=== PATIENT | female | born 1945 | race Caucasian/White ===

== ENCOUNTER 2019-09-03 13:19 | Inpatient (IN) | payer MEDICARE, OTHER ==
[~2019-09-03] VITALS: Ht 170.2 cm; Wt 55.3 kg
--- NOTE | 2019-09-03 13:31 | NUR ---
PATIENT JANET, FROM [facility], SENT BY PMD FOR PSYCH EVAL DUE TO AGGRESSIVE TO SELF AND STAFF. PATIENT A/O X 1. NO ACUTE DISTRESS. WITH DISORGANIZED THOUGHT PROCESS, UNABLE TO FOLLOW INSTRUCTIONS. SITTER AT BEDSIDE. WILL CONTINUE TO MONITOR ACCORDINGLY.
[2019-09-03] MEDS ORDERED: ATOR10TA PO (13:38)
[2019-09-03] MEDS ORDERED: AMLO10TA4 PO (13:38)
[2019-09-03] MEDS ORDERED: QUET50TA PO (13:38)
[2019-09-03] MEDS ORDERED: LORA-259 PO (13:38)
[2019-09-03] MEDS ORDERED: MAG355OR18 PO (13:38)
[2019-09-03] MEDS ORDERED: ACET-73 PO (13:38)
[2019-09-03] MEDS ORDERED: FOLI1TAB16 PO (13:38)
[2019-09-03] MEDS ORDERED: CEPH-570 PO (13:38)
[2019-09-03] MEDS ORDERED: DIVA500T2 PO (13:38)
[2019-09-03 13:41] LABS: BASOPHILS % (AUTO) 0.4 % (0.0-2.0); EOSINOPHILS % (AUTO) 0.5 % (0.0-6.0); HEMATOCRIT 36 % (33-45); HEMOGLOBIN 11.7 g/dL (11.5-14.8); LYMPHOCYTES # (AUTO) 1.6 /CMM (0.8-4.8); LYMPHOCYTES % (AUTO) 31.5 % (20.0-44.0); MEAN CORPUSCULAR HGB CONC 33 g/dl (31.0-36.0); MEAN CORPUSCULAR VOLUME 96 fL (82-100); MONOCYTES # (AUTO) 0.4 /CMM (0.1-1.30); MONOCYTES % (AUTO) 7.6 % (2.0-12.0); PLATELET COUNT (AUTO) 185 /CMM (150-450); RED BLOOD CELL COUNT(AUTO) 3.72 MIL/uL (4.0-5.2); WHITE BLOOD COUNT (AUTO) 5.1 K/uL (4.3-11.0)
[2019-09-03 13:48] LABS: CALCIUM, SERUM 8.7 mg/dL (8.5-10.1); CARBON DIOXIDE 30 mmol/L (21-32); CHLORIDE 107 mmol/L (98-107); CREATININE 0.8 mg/dL (0.6-1.3); GLUCOSE 150 mg/dL (74-106); POTASSIUM 3.5 mmol/L (3.5-5.1); SODIUM SERUM 143 mmol/L (136-145); UREA NITROGEN, BLOOD 16 mg/dL (7-18)
--- NOTE | 2019-09-03 13:54 | NUR ---
PATIENT UNABLE TO PROVIDE URINE SPECIMEN. DR MONTEJO MADE AWARE, NO ORDERS GIVEN AT THIS TIME. WILL CONTINUE TO MONITOR
[2019-09-03 13:59] LABS: BILIRUBIN,TOTAL 0.3 mg/dL (0.2-1.0)
[2019-09-03 14:00] LABS: ALANINE AMINOTRANSFERASE 25 U/L (12-78); ALBUMIN 3.3 g/dL (3.4-5.0); ALCOHOL, BLOOD < 3 mg/dL (0-0); ALKALINE PHOSPHATASE 46 U/L (46-116); ASPARTATE AMINOTRANSFERASE 16 U/L (15-37); BILIRUBIN,DIRECT 0.1 mg/dL (0.0-0.2); SALICYLATE < 2.8 mg/dL (2.8-20.0); TOTAL PROTEIN, SERUM 6.7 g/dL (6.4-8.2)
[2019-09-03 14:03] LABS: ACETAMINOPHEN 0 ug/ml (10-30)
--- NOTE | 2019-09-03 14:27 | NUR ---
CALLED AIRPLANE FIRST OFFICER PHOTOGRAPHIC AIDE. ETA 60 MIN
--- NOTE | 2019-09-03 14:50 | NUR ---
ART PURCHASER AT BEDSIDE
[2019-09-03 15:00] LABS: APPEARANCE,URINE Clear (CLEAR); BILIRUBIN,URINE Negative (NEGATIVE); BLOOD, URINE Negative Ery/uL (NEGATIVE); COLOR,URINE Yellow (YELLOW); KETONES,URINE Negative (NEGATIVE); LEUKOCYTE ESTERASE ,URINE Negative (NEGATIVE); NITRITE, URINE Negative (NEGATIVE); PH,URINE 6.5 (5.0-8.0); PROTEIN,URINE Trace mg/dl (NEGATIVE); UGLUCOSE Negative (NEGATIVE); UROBILINOGEN,URINE 0.2 EU/dL (0.2)
--- NOTE | 2019-09-03 16:25 | NUR ---
PLACED CALL TO GPS AND GAVE REPORT TO ELIAS ERICKSON
--- NOTE | 2019-09-03 17:08 | NUR ---
PATIENT TRANSFERRED TO GPS VIA WHEELCHAIR. TRANSFERRED IN STABLE CONDITION. NO ACUTE DISTRESS. DENIES ANY PAIN OR DISCOMFORT. BELONGINGS WITH PATIENT.
--- NOTE | 2019-09-03 17:15 | NUR ---
MAINTENANCE FITTER NOTE: PT IS A 74 Y/O FEMALE ADMITTED ON 5150 GD FROM [facility]. PER 5150 HOLD "PATIENT KNOWS HER NAME BUT ORIENTED TO DATE, PLACE AND WHY SHE IS HERE. PATIENT THINKS SHE IS HERE BECAUSE SHE IS VISITING HER GRANDMOTHER, PATIENT IS PARANOID THINKS PEOPLE ARE FOLLOWING HER. PATIENT IS CONFUSED AND DISORGANIZED. JUDGMENT IS IMPAIRED AND HAS POOR INSIGHT AND IMPULSE CONTROL. PATIENT IS UNABLE TO PROVIDE FOR HER FOOD, CLOTHING, AND ASSISTED DUE TO HER MENTAL STATE. [facility] IS ALSO UNABLE TO PROVIDE THE SAME DUE TO THE SAME." UPON FACE TO FACE ASSESSMENT, PATIENT IS ALERT X1, CONFUSED, UNKEMPT APPEARANCE, CLEAR SPEECH, DENIES SI/HI AT THIS TIME. GUARDED, PASSIVE, SUSPICIOUS, ANXIOUS, FAIR IMPULSE CONTROL. ANXIOUS, LABILE MOOD. FLAT, BLUNTED AFFECT. DISORGANIZE, DISORIENTED. PARANOID IDEATION. VSS, NO ACUTE DISTRESS NOTED, ALLERGIES DOCUMENTED, CODE STATUS ORDERED PER YUE. MRSA SWAB DONE, SKIN ASSESSMENT WITH PICTURES ADDED TO CHART. WOUND CONSULT ORDERED. BELONGINGS LIST COMPLETE. PT'S RIGHTS HANDBOOK GIVEN ALONG WITH GUIDE TO PRESCRIPTIONS. YUE AND DR. POWERS CONTACTED REGARDING ADMISSION TO REVIEW MED RECON AND OBTAINED ADMITTING ORDERS FROM PSYCHIATRIST. WILL CONT TO MONITOR PT. Q 15 MIN FOR SAFETY AND BEHAVIOR PER GPS PROTOCOL.
[2019-09-03 17:43] VITALS: BP 141/73
[2019-09-03] MEDS ORDERED: MAG HYDROX/AL HYDROX/SIMETH 30 ML UDC PO PRN ×2 (18:00→18:30)
[2019-09-03] MEDS ORDERED: ACETAMINOPHEN 325 MG TABLET PO PRN (18:00)
[2019-09-03] MEDS ORDERED: BLOOD SUGAR DIAGNOSTIC 1 EACH STRIP IN ONE (18:00)
[2019-09-03] MEDS ORDERED: MAGNESIUM HYDROXIDE 30 ML UDC PO PRN (18:00)
--- NOTE | 2019-09-03 19:16 | NUR ---
GPS/RN NOTE: PATIENT AMBULATING AROUND, CONFUSED, SMILE ON HER FACE. NO APPARENT DISTRESS NOTED.
[2019-09-03 19:52] VITALS: BP 124/75
[2019-09-03] MEDS: CEPHALEXIN MONOHYDRATE 500 MG CAPSULE PO SCH (20:11)
[2019-09-03] MEDS: ZOLPIDEM TARTRATE 5 MG TABLET PO PRN (20:11)
--- NOTE | 2019-09-03 20:11 | NUR ---
GPS/RN NOTE: PATIENT PACING AROUND THE UNIT, BACK AND FORTH IN HER ROOM. NO APPARENT DISTRESS NOTED.
[2019-09-03] MEDS: ATORVASTATIN 10 MG TABLET PO SCH (21:29)
[2019-09-03] MEDS: LORAZEPAM 0.5 MG TABLET PO PRN (21:29)
--- NOTE | 2019-09-03 21:33 | NUR ---
GPS/RN NOTE: PATIENT NOT SLEEPING, ATIVAN 1 MG PO GIVEN.
[2019-09-04 07:49] LABS: ALBUMIN 3.2 g/dL (3.4-5.0); BILIRUBIN,TOTAL 0.3 mg/dL (0.2-1.0); CREATININE 0.8 mg/dL (0.6-1.3); POTASSIUM 3.2 mmol/L (3.5-5.1); TOTAL PROTEIN, SERUM 6.7 g/dL (6.4-8.2)
[2019-09-04 08:00] VITALS: BP 136/77
--- NOTE | 2019-09-04 08:30 | NUR ---
PSYCHOSOCIAL NOTE: Elayne, Gisell Weaver REDUCTION FURNACE OPERATOR HELPER, attest to the patients previous psychosocial information dated 08/16/19 Update On Events leading to Admission and Discharge Plan: Pt has returned to the hospital within 8 days of her previous discharge date of 08/27/19. The current plan is to increase and stabilize the patient on her medications. SW is exploring SNF placement as pt came from [facility] Address: [address] [place] [address] and may not be accepted back due to her aggressive behavior and non-compliance with care and medications. The pt appeared to be in a euthymic mood with congruent affect. Pt is confused, disoriented, and disorganized. Pt is ambulatory, well-groomed and appropriately dressed, pleasant and easily engaged. Pt is currently denying any suicidal or homicidal ideation as well as any visual or auditory hallucinations. ELLE will work with the pt and the MD regarding appropriate discharge planning. SW will form a safe and proper discharge.
[2019-09-04] MEDS: CEPHALEXIN MONOHYDRATE 500 MG CAPSULE PO SCH ×2 (08:35→20:22)
[2019-09-04] MEDS: AMLODIPINE BESYLATE 10 MG TABLET PO SCH (08:35)
[2019-09-04] MEDS: FOLIC ACID 1 MG TABLET PO SCH (08:35)
--- NOTE | 2019-09-04 09:00 | NUR ---
FACILITY CONTACT: ELLE contacted Pollo, product safety administrator at [facility] Address: [address] [place] [address] and left a voicemail for callback.
--- NOTE | 2019-09-04 09:01 | NUR ---
FAMILY CONTACT: ELLE contacted pts sister in law Arlyn [phone] to discuss pts current psych hospitalization, treatment, and discharge plan. ELLE informed her that pt was readmitted within 8 days of her last discharge and was admitted due to aggressive behavior and non-compliance with care. SW discussed possible short-term SNF placement for continued stabilization before pt returns to her assisted living. Arlyn stated that it may be a good discharge plans but wants to ensure that pt does not lose her room at [facility] if pt does go to a SNF short term. ELLE stated that she would discuss this with Pollo, client service administrator at [facility] and will contact her next week to continue discussing a safe and proper discharge plan.
--- NOTE | 2019-09-04 09:29 | NUR ---
FACILITY CONTACT: ELLE contacted Pasha, network security administrator at [facility] Address: [address] [place] [address] who stated facility is willing to take pt back as long as her medications are stabilized. Pasha informed ELLE that on the second day after discharge from the hospital pt became unmanageable and became aggressive with other residents and staff. ELLE informed Pasha that pt was stabilized and did not have any behaviors issues while in the psych unit and suggested that perhaps pts medications were not given to her routinely as they were given to her while she was hospitalized. Pasha mentioned that perhaps that is what caused pt to become unmanageable as her medications were not being given to her routinely at the same exact time they were being given to her at [facility]. Pasha also stated that if pt is discharged to a SNF short term she will not lose her room and suggested that might be a good discharge plan for pt.
[2019-09-04 09:35] LABS: CHOLESTEROL 178 mg/dL (<200); HDL CHOLESTEROL 74 mg/dL (40-60); LDL 78 mg/dL (0-99); TRIGLYCERIDES 59 mg/dL (30-150)
[2019-09-04] MEDS ORDERED: POTASSIUM CHLORIDE 20 MEQ TAB.PRT.SR PO ONE (10:30)
--- NOTE | 2019-09-04 11:08 | NUR ---
WOUND CARE CONSULT: PT PRESENTS AMBULATORY AND CONTINENT WITH DRY SCRATCHES AND DISCOLORATIONS TO ARMS, PRESENT ON ADMISSION. CURRENT UDAY SCORE IS 20. WILL SEE PRN.
[2019-09-04 16:00] VITALS: BP 136/93
[2019-09-04] MEDS: DIVALPROEX SODIUM 250 MG TABLET.DR PO SCH ×2 (16:26→17:00)
[2019-09-04] MEDS ORDERED: DIVALPROEX SODIUM 500 MG TABLET.DR PO SCH (17:00)
[2019-09-04] MEDS: QUETIAPINE FUMARATE 25 MG TABLET PO SCH (17:32)
[2019-09-04 20:09] VITALS: BP 103/67
[2019-09-04] MEDS: ZOLPIDEM TARTRATE 5 MG TABLET PO PRN (20:23)
--- NOTE | 2019-09-04 20:23 | NUR ---
GPS/RN NOTE: AMBIEN 5 MG TAB PO GIVEN FOR SLEEP, LOOKS TIRED AND SLEEPY AT THIS TIME.
[2019-09-04] MEDS: ATORVASTATIN 10 MG TABLET PO SCH (21:33)
[2019-09-04] MEDS: LORAZEPAM 0.5 MG TABLET PO PRN (22:09)
--- NOTE | 2019-09-04 22:09 | NUR ---
GPS/RN NOTE: STILL AWAKE, ATIVAN 1 MG TAB PO GIVEN FOR SLEEP.
[2019-09-05] MEDS: DIVALPROEX SODIUM 250 MG TABLET.DR PO SCH ×2 (08:28→16:43)
[2019-09-05] MEDS: CEPHALEXIN MONOHYDRATE 500 MG CAPSULE PO SCH ×2 (08:28→21:20)
[2019-09-05] MEDS: FOLIC ACID 1 MG TABLET PO SCH (08:28)
[2019-09-05] MEDS: QUETIAPINE FUMARATE 25 MG TABLET PO SCH ×2 (08:28→16:43)
[2019-09-05] MEDS: AMLODIPINE BESYLATE 10 MG TABLET PO SCH (08:28)
[2019-09-05 08:34] VITALS: BP 136/74
--- NOTE | 2019-09-05 14:07 | NUR ---
Group Activity 09/05/19 Goal: Patient will attend group held today from 1:00pm-3:00pm in the activities room and participate and/or actively listen to peers and be respectful. Intervention: SW facilitated group session with patients regarding sensory activity for the holidays. SW explored what tastes, smells, sounds, and sights come to mind when thinking about the holiday season and one thing they are grateful for. SW validated the pt.'s sadness around not being able to spend the holidays with all of your loved ones and acknowledged her for staying positive. Response: Patient was agreeable to participating in group session. Patient was alert and remained calm and cooperative throughout session. The patient was respectful towards her peers when they shared. Pt. expressed she is grateful for her ability to ambulate and grateful to be discharging in the near future. Pt. expressed the sight of her loved ones comes to mind during the holiday season as she cannot be with all of them but has fond memories of them. Plan: Patient will be invited to attend next geriatric social worker group session held.
[2019-09-05 16:00] VITALS: BP 107/68
[2019-09-05 21:07] VITALS: BP 147/67
[2019-09-05] MEDS: ATORVASTATIN 10 MG TABLET PO SCH (21:20)
[2019-09-05] MEDS: ZOLPIDEM TARTRATE 5 MG TABLET PO PRN (21:20)
--- NOTE | 2019-09-05 21:21 | NUR ---
GPS RN NOTES: PT UNABLE TO GO TO SLEEP. OFFERED AMBIEN PO PRN. PT TOLERATED WELL CONT TO MONITOR.
[2019-09-06] MEDS: LORAZEPAM 0.5 MG TABLET PO PRN (00:31)
--- NOTE | 2019-09-06 00:34 | NUR ---
GPS RN NOTES: PATIENT IS ANXIOUS. OFFERED ATIVAN 1MG PO PRN. PT AGREED. ADMINISTERED ATIVAN 1MG PO PRN. PT TOLERATED MEDICATION WELL. CONT TO MONITOR.
[2019-09-06 08:00] VITALS: BP 118/65
[2019-09-06] MEDS: CEPHALEXIN MONOHYDRATE 500 MG CAPSULE PO SCH ×2 (08:28→21:24)
[2019-09-06] MEDS: DIVALPROEX SODIUM 250 MG TABLET.DR PO SCH ×2 (08:28→16:17)
[2019-09-06] MEDS: AMLODIPINE BESYLATE 10 MG TABLET PO SCH (08:28)
[2019-09-06] MEDS: QUETIAPINE FUMARATE 25 MG TABLET PO SCH ×2 (08:28→16:17)
[2019-09-06] MEDS: FOLIC ACID 1 MG TABLET PO SCH (08:28)
--- NOTE | 2019-09-06 14:41 | NUR ---
Group Note09/06/19: Goal: Patient will attend group held today at 1:00 PM in the activities room and participate and/or actively listen to peers and be respectful. Intervention: SW facilitated Mindful Breathing exercise with residents. SW educated the pt. on mindfulness purpose and benefits. Response: Patient was agreeable to participating in group session. The patient remained calm and cooperative throughout session. The pt. stated that she enjoyed engaging in the mindful breathing exercise. Pt. expressed gratitude for todays group. Plan: Patient will be invited to attend next secondary social studies teacher group session held.
[2019-09-06 16:01] VITALS: BP 120/68
[2019-09-06 20:01] VITALS: BP 101/56
[2019-09-06] MEDS: ATORVASTATIN 10 MG TABLET PO SCH (21:24)
[2019-09-06] MEDS: ZOLPIDEM TARTRATE 5 MG TABLET PO PRN (21:25)
--- NOTE | 2019-09-06 21:38 | NUR ---
GPS RN NOTES: PT UNABLE TO GO TO SLEEP. OFFERED AMBIEN PO PRN. PT TOLERATED WELL CONT TO MONITOR.
[2019-09-07 08:00] VITALS: BP 120/79
[2019-09-07] MEDS: CEPHALEXIN MONOHYDRATE 500 MG CAPSULE PO SCH ×2 (08:11→21:02)
[2019-09-07] MEDS: AMLODIPINE BESYLATE 10 MG TABLET PO SCH (08:12)
[2019-09-07] MEDS: QUETIAPINE FUMARATE 25 MG TABLET PO SCH ×2 (08:12→17:46)
[2019-09-07] MEDS: FOLIC ACID 1 MG TABLET PO SCH (08:12)
[2019-09-07] MEDS: DIVALPROEX SODIUM 250 MG TABLET.DR PO SCH ×2 (08:12→17:46)
[2019-09-07 16:00] VITALS: BP 130/85
[2019-09-07 20:00] VITALS: BP 108/66
[2019-09-07] MEDS: ZOLPIDEM TARTRATE 5 MG TABLET PO PRN (21:02)
[2019-09-07] MEDS: ATORVASTATIN 10 MG TABLET PO SCH (21:02)
[2019-09-07] MEDS: LORAZEPAM 0.5 MG TABLET PO PRN (22:55)
[2019-09-08 08:00] VITALS: BP 125/58
[2019-09-08] MEDS: DIVALPROEX SODIUM 250 MG TABLET.DR PO SCH ×2 (08:18→16:19)
[2019-09-08] MEDS: CEPHALEXIN MONOHYDRATE 500 MG CAPSULE PO SCH ×2 (08:18→21:34)
[2019-09-08] MEDS: FOLIC ACID 1 MG TABLET PO SCH (08:18)
[2019-09-08] MEDS: QUETIAPINE FUMARATE 25 MG TABLET PO SCH ×2 (08:18→16:19)
[2019-09-08] MEDS: AMLODIPINE BESYLATE 10 MG TABLET PO SCH (08:19)
[2019-09-08] MEDS: LORAZEPAM 0.5 MG TABLET PO PRN ×2 (14:46→23:52)
--- NOTE | 2019-09-08 14:51 | NUR ---
PT IS PACING HALLWAYS AND NOTICEABLY AGITATED. WHEN ASKED IF SHE WAS OKAY AND HOW SHE WAS FEELING SHE USED CURSE WORDS AND DISPLAYED BEING UPSET. ATIVAN PRN WAS ADMINISTERED.
[2019-09-08 16:00] VITALS: BP 118/63
[2019-09-08 19:41] VITALS: BP 112/77
[2019-09-08] MEDS: ZOLPIDEM TARTRATE 5 MG TABLET PO PRN (21:33)
[2019-09-08] MEDS: ATORVASTATIN 10 MG TABLET PO SCH (21:34)
[2019-09-09 08:00] VITALS: BP 108/52
[2019-09-09] MEDS: FOLIC ACID 1 MG TABLET PO SCH (08:20)
[2019-09-09] MEDS: DIVALPROEX SODIUM 250 MG TABLET.DR PO SCH ×2 (08:20→16:55)
[2019-09-09] MEDS: AMLODIPINE BESYLATE 10 MG TABLET PO SCH (08:20)
[2019-09-09] MEDS: CEPHALEXIN MONOHYDRATE 500 MG CAPSULE PO SCH ×2 (08:20→21:00)
[2019-09-09] MEDS: QUETIAPINE FUMARATE 25 MG TABLET PO SCH ×3 (08:20→21:01)
--- NOTE | 2019-09-09 11:44 | NUR ---
FACILITY CONTACT: ELLE contacted Pollo, windows administrator at [facility] Address: [address] [place] [address] to inform him pt has a discharge date for 09/12/19. Pollo stated that he will be sending Pasha to come assess pt to determine if she will be able to return to the facility due to her aggressive behavior at the facility. ELLE informed him that currently pt has not displayed any behavior issues and is very cooperative, refractable, and complaint. ELLE also suggested that perhaps pts medications are not administered at the same times they are being given to her while hospitalized and suggested the facility follow the same regimen. Pollo stated that he will have Pasha come assess pt before discharge to discuss treatment and medication regimen with nursing staff.
[2019-09-09 16:00] VITALS: BP 129/81
[2019-09-09 20:44] VITALS: BP 127/79
[2019-09-09] MEDS: ATORVASTATIN 10 MG TABLET PO SCH (21:00)
[2019-09-09] MEDS: ZOLPIDEM TARTRATE 5 MG TABLET PO PRN (21:01)
--- NOTE | 2019-09-09 21:19 | NUR ---
GPS RN NOTES: PT UNABLE TO GO TO SLEEP. ADMINISTER AMBIEN 5 MH 1 TAB PER ORDER. EDUCATED PT. PT TOLERATED WELL. CONTINUE TO MONITOR.
[2019-09-10 08:00] VITALS: BP 121/72
[2019-09-10] MEDS: FOLIC ACID 1 MG TABLET PO SCH (08:09)
[2019-09-10] MEDS: DIVALPROEX SODIUM 250 MG TABLET.DR PO SCH ×2 (08:09→16:36)
[2019-09-10] MEDS: QUETIAPINE FUMARATE 25 MG TABLET PO SCH ×3 (08:09→21:23)
[2019-09-10] MEDS: AMLODIPINE BESYLATE 10 MG TABLET PO SCH (08:12)
--- NOTE | 2019-09-10 14:27 | NUR ---
FACILITY CONTACT: ELLE contacted Pasha, clinical research administrator at [facility] Address: [address] [place] [address] who stated he will be coming tomorrow 09/11/19 to assess pt.
--- NOTE | 2019-09-10 14:29 | NUR ---
GROUP NOTE: ELLE assessed pts ability to participate in group therapy discussing "discharge planning." Pt is unable to participate due to having Dementia and not being able to engage in a coherent conversation. Addendum: 09/10/19 at 1437 by [place] ALMEIDA group was held on Monday09/09/19.
--- NOTE | 2019-09-10 15:05 | NUR ---
Group Note: SW encouraged the pt to attend group therapy on 09/10/19 at 2pm on the topic of discharge planning. SW assessed pts ability to participate in group therapy. Pt is unable to participate due to having Dementia and not being able to engage in a coherent conversation.
[2019-09-10 16:00] VITALS: BP 127/72
[2019-09-10 20:13] VITALS: BP 118/61
[2019-09-10] MEDS: ZOLPIDEM TARTRATE 5 MG TABLET PO PRN (21:24)
[2019-09-10] MEDS: ATORVASTATIN 10 MG TABLET PO SCH (21:24)
--- NOTE | 2019-09-10 21:26 | NUR ---
GPS RN NOTES: PT UNABLE TO GO TO SLEEP. ADMINISTER AMBIEN 5 MH 1 TAB PER ORDER. EDUCATED PT. PT TOLERATED WELL. CONTINUE TO MONITOR.
[2019-09-11 08:00] VITALS: BP 113/66
[2019-09-11] MEDS: AMLODIPINE BESYLATE 10 MG TABLET PO SCH (08:10)
[2019-09-11] MEDS: FOLIC ACID 1 MG TABLET PO SCH (08:11)
[2019-09-11] MEDS: QUETIAPINE FUMARATE 25 MG TABLET PO SCH ×3 (08:11→20:57)
[2019-09-11] MEDS: DIVALPROEX SODIUM 250 MG TABLET.DR PO SCH ×2 (08:11→16:54)
--- NOTE | 2019-09-11 10:50 | NUR ---
FACILITY CONTACT: ELLE contacted Pasha, clinic administrator at [facility] Address: [address] [place] [phone] who stated he will be coming on this present day to assess pt between 12:00pm-1:00pm.
[2019-09-11 16:00] VITALS: BP 116/73
[2019-09-11 20:08] VITALS: BP 137/67
--- NOTE | 2019-09-11 20:30 | NUR ---
joint machine operator notes pt started walking and going to each patient room even you re-directed where is her room and noticed unstable to walked at this time. They put her in karmen chair for now for pt safety and will continue closely monitoring.
[2019-09-11] MEDS: ATORVASTATIN 10 MG TABLET PO SCH (20:57)
[2019-09-11] MEDS: ZOLPIDEM TARTRATE 5 MG TABLET PO PRN (20:57)
--- NOTE | 2019-09-11 21:46 | NUR ---
full stack developer notes Pt still in karmen chair and routine meds given as well as her sleep medication and pt tolerated well. snacks also served. will continue monitoring.
[2019-09-11] MEDS: LORAZEPAM 0.5 MG TABLET PO PRN (21:56)
--- NOTE | 2019-09-11 21:58 | NUR ---
dumpman notes pt still awake and anxious sitting in the karmen chair, even sleep medication given, administered Ativan po as ordered . will continue closely monitoring.
--- NOTE | 2019-09-12 05:54 | NUR ---
author notes pt remain sleeping comfortably in bed without any distress noted.
--- NOTE | 2019-09-12 06:54 | NUR ---
fertilizer loader closing notes pt remains sleeping comfortably in bed without any distress noted. confusion still noted when she's awake, frequent re-orientation needed. but compliance on her medication .stable sydnie the night except the confusion. all due meds given and all needs met. kept her warm and comfortable at all times. bed alarm set for pt safety. will endorse to am nurse for continuity of care.
[2019-09-12 08:00] VITALS: BP 143/70
[2019-09-12 08:15] VITALS: BP 143/70
[2019-09-12] MEDS: FOLIC ACID 1 MG TABLET PO SCH (08:15)
[2019-09-12] MEDS: DIVALPROEX SODIUM 250 MG TABLET.DR PO SCH (08:15)
[2019-09-12] MEDS: AMLODIPINE BESYLATE 10 MG TABLET PO SCH (08:15)
[2019-09-12] MEDS: QUETIAPINE FUMARATE 25 MG TABLET PO SCH (08:15)
--- NOTE | 2019-09-12 09:18 | NUR ---
DISCHARGE NOTE: Pt will be discharged via facility vehicle between 1:00pm- 3:00pm to [facility] Address: [address] [place] [address] . Pts sister in law Arlyn [phone] has been notified and agrees with discharge plan. Pts mood is euthymic with congruent affect. Pt denied visual/auditory hallucinations and denied suicidal/homicidal ideation. Pt will follow up with Psychiatrist: Dr. Jose Gibson Address: [place] [address] and Director Food Safety: Dr. Dav Ramos [address] [facility] [address] [place] [address] . The multidisciplinary exit care form was done, printed, signed, and given to the patient.
--- NOTE | 2019-09-12 16:04 | NUR ---
GRAILS WEB APPLICATION DEVELOPER NOTE: PATIENT IS A 74 YEAR OLD FEMALE DISCHARGED TO. PATIENT IS IN STABLE CONDITION. VSS. NO ACUTE DISTRESS NOTED. NO COMPLAINTS. COMPLIANT WITH MEDICATION MANAGEMENT. COOPERATIVE WITH PLAN OF CARE. PSYCHIATRIC TREATMENT PLANS MET. MEDICAL TREATMENT PLANS DEFERRED FOR CONTINUAL MONITORING. DENIES SI/HI VAH AT THE TIME OF DISCHARGE. SKIN CHECK DONE WITH WOUND PICTURES IN CHART. EDUCATED PATIENT ABOUT AFTERCARE WITH COPY PROVIDED. RETURNED PERSONAL BELONGINGS TO PATIENT. MEDICATIONS RECONCILED WITH DR MARI AND DR FIGUEROA ALONG WITH PSYCHIATRIC DISCHARGE ORDERS. DISCHARGE PAPERWORK SIGNED. FOR FOLLOW UP WITH PSYCHIATRIST DR JUJU GONSALES [id number] [facility] [id number] DONNELL PONCE [address] [facility] [address] [facility] [address] WITHIN 1 WEEK. PATIENT LEFT [facility] VIA PRIVATE CAR AT 1415.
== END 2019-09-12 14:15 | DRG 885 ==
LOC: ER 13:30 → GPS 16:55
PROVIDERS: ADMIT Psychiatry & Neurology Psychiatry; ATTEND Registered Nurse
DX: F25.9 Schizoaffective disorder, unspecified (principal); F23 Brief psychotic disorder; N39.0 Urinary tract infection, site not specified; R45.1 Restlessness and agitation; I10 Essential (primary) hypertension; E78.5 Hyperlipidemia, unspecified; B96.89 Other specified bacterial agents as the cause of diseases classified elsewhere; F41.9 Anxiety disorder, unspecified; F32.9 Major depressive disorder, single episode, unspecified; F03.90 Unspecified dementia, unspecified severity, without behavioral disturbance, psychotic disturbance, mood disturbance, and anxiety
CPT/HCPCS: 36415; 80048-TC; 80053-TC; 80061-TC; 80076-TC; 80305; 81000-TC; 82962-TC; 85025-TC; 87081-TC; 87086-TC; 87186-TC; G0480

== ENCOUNTER 2019-09-26 15:49 | Inpatient (IN) | payer MEDICARE, OTHER ==
[~2019-09-26] VITALS: Ht 167.6 cm; Wt 65.3 kg
[~2019-09-26 15:49] MED LIST: ACET-73 PO; AMLO10TA4 PO; ATOR10TA PO; CEPH-570 PO; DIVA500T2 PO; FOLI1TAB16 PO; LORA-259 PO; MAG355OR18 PO; QUET50TA PO
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
[2019-09-26 16:45] LABS: BASOPHILS % (AUTO) 0.5 % (0.0-2.0); EOSINOPHILS % (AUTO) 1.2 % (0.0-6.0); HEMATOCRIT 35 % (33-45); HEMOGLOBIN 11.5 g/dL (11.5-14.8); LYMPHOCYTES # (AUTO) 1.7 /CMM (0.8-4.8); LYMPHOCYTES % (AUTO) 39.1 % (20.0-44.0); MEAN CORPUSCULAR HGB CONC 33 g/dl (31.0-36.0); MEAN CORPUSCULAR VOLUME 95 fL (82-100); MONOCYTES # (AUTO) 0.4 /CMM (0.1-1.30); MONOCYTES % (AUTO) 8.7 % (2.0-12.0); NEUTROPHILS # (AUTO) 2.2 /CMM (1.8-8.9); NEUTROPHILS % (AUTO) 50.5 % (43.0-81.0); PLATELET COUNT (AUTO) 153 /CMM (150-450); RED BLOOD CELL COUNT(AUTO) 3.62 MIL/uL (4.0-5.2); WHITE BLOOD COUNT (AUTO) 4.4 K/uL (4.3-11.0)
--- NOTE | 2019-09-26 16:52 | NUR ---
place a call to [facility] to verify home medications, spoke to nursing media supervisor. medications verified and documented.
[2019-09-26 17:14] LABS: CALCIUM, SERUM 8.9 mg/dL (8.5-10.1); CARBON DIOXIDE 27 mmol/L (21-32); CHLORIDE 104 mmol/L (98-107); CREATININE 0.8 mg/dL (0.6-1.3); GLUCOSE 100 mg/dL (74-106); SODIUM SERUM 140 mmol/L (136-145); UREA NITROGEN, BLOOD 14 mg/dL (7-18)
[2019-09-26 17:20] LABS: ALANINE AMINOTRANSFERASE 19 U/L (12-78); ALBUMIN 3.4 g/dL (3.4-5.0); ALCOHOL, BLOOD < 3 mg/dL (0-0); ALKALINE PHOSPHATASE 46 U/L (46-116); ASPARTATE AMINOTRANSFERASE 12 U/L (15-37); BILIRUBIN,DIRECT 0.1 mg/dL (0.0-0.2); BILIRUBIN,TOTAL 0.2 mg/dL (0.2-1.0); TOTAL PROTEIN, SERUM 6.7 g/dL (6.4-8.2)
[2019-09-26 17:21] LABS: ACETAMINOPHEN < 2 ug/ml (10-30); SALICYLATE 0.4 mg/dL (2.8-20.0)
--- NOTE | 2019-09-26 17:26 | NUR ---
URINE COLLECTED AND SENT TO LAB
[2019-09-26 17:34] LABS: APPEARANCE,URINE Clear (CLEAR); BILIRUBIN,URINE Negative (NEGATIVE); BLOOD, URINE Negative Ery/uL (NEGATIVE); COLOR,URINE Yellow (YELLOW); KETONES,URINE Negative (NEGATIVE); LEUKOCYTE ESTERASE ,URINE Negative (NEGATIVE); NITRITE, URINE Negative (NEGATIVE); PH,URINE 8.5 (5.0-8.0); PROTEIN,URINE Negative (NEGATIVE); UGLUCOSE Negative (NEGATIVE); UROBILINOGEN,URINE 0.2 EU/dL (0.2)
--- NOTE | 2019-09-26 18:43 | NUR ---
Patient is resting comfortably in bed with eyes closed. Easily aroused. VSS
--- NOTE | 2019-09-26 19:42 | NUR ---
REPORT GIVEN TO DRE YEPEZ
--- NOTE | 2019-09-26 19:57 | NUR ---
Patient is resting comfortably in bed with eyes closed. Easily aroused. VSS
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
--- NOTE | 2019-09-26 20:26 | NUR ---
pt taken to 220 in stable condition
--- NOTE | 2019-09-26 20:46 | NUR ---
GPS/RN NOTE: VITALS ON ADMISSION: 161/90, 76, 98.0, 20, 100% SAT. ON ROOM AIR. PATIENT ASYMPTOMATIC, DENIES CHEST PAIN, NO APPARENT DISTRESS NOTED. WILL RECHECK BP IN AN HOUR.
[2019-09-26 20:48] VITALS: BP 161/90
[2019-09-26] MEDS ORDERED: BLOOD SUGAR DIAGNOSTIC 1 EACH STRIP IN ONE (21:00)
[2019-09-26] MEDS ORDERED: MAG HYDROX/AL HYDROX/SIMETH 30 ML UDC PO PRN (21:00)
[2019-09-26] MEDS ORDERED: ACETAMINOPHEN 325 MG TABLET PO PRN (21:00)
[2019-09-26] MEDS ORDERED: MAGNESIUM HYDROXIDE 30 ML UDC PO PRN (21:00)
--- NOTE | 2019-09-26 21:37 | NUR ---
GPS/RN NOTE: CALLED PATIENT'S BROTHER, GERMAINE HIRSCH, [phone], LEFT A MESSAGE ABOUT HER SISTER ADMITTED TO [facility]. -
--- NOTE | 2019-09-26 21:43 | NUR ---
GPS RN NOTE PATIENT'S BS LEVEL IS 81 MG/DL. ASYMPTOMATIC. ORANGE JUICE PO GIVEN. WILL CONTINUE TO MONITOR CLOSELY FOR ANY CHANGES.
--- NOTE | 2019-09-26 22:42 | NUR ---
GPS/RN NOTE: DR. Bebeto TURNER CAME AND ORDERED CODE STATUS, DNR. MEDS RECONCILED.
[2019-09-26] MEDS: TEMAZEPAM 7.5 MG CAPSULE PO PRN (22:55)
--- NOTE | 2019-09-26 22:55 | NUR ---
PRN RESTORIL GIVEN PATIENT NOTED TO BE UNABLE TO SLEEP, PACING THE HALLWAY & VERBALIZED THAT SHE CAN NOT GO TO SLEEP. PRN RESTORIL 7.5 MG PO GIVEN ORDERED BY MD. WILL REASSESS FOR EFFECTIVENESS.
--- NOTE | 2019-09-27 06:51 | NUR ---
GPS RN CLOSING NOTE PATIENT SLEPT 5 HOURS, NO ACUTE DISTRESS NOTED. ANXIOUS, RESTLESS & UNABLE TO SLEEP AT NIGHT, RESTORIL GIVEN PRN ORDERED & WAS EFFECTIVE. SAFETY MEASURES IN PLACE. WILL ENDORSE TO AM RN TO CONTINUE TO MONITOR FOR SAFETY & BEHAVIOR.
[2019-09-27 08:00] VITALS: BP 136/73
[2019-09-27 08:05] LABS: CHOLESTEROL 188 mg/dL (<200); HDL CHOLESTEROL 88 mg/dL (40-60); LDL 84 mg/dL (0-99); TRIGLYCERIDES 67 mg/dL (30-150)
[2019-09-27 08:06] LABS: ALBUMIN 3.6 g/dL (3.4-5.0); BILIRUBIN,TOTAL 0.6 mg/dL (0.2-1.0); CALCIUM, SERUM 9.1 mg/dL (8.5-10.1); CREATININE 0.8 mg/dL (0.6-1.3); POTASSIUM 3.7 mmol/L (3.5-5.1); TOTAL PROTEIN, SERUM 7.3 g/dL (6.4-8.2)
[2019-09-27] MEDS ORDERED: DIVALPROEX SODIUM 500 MG TABLET.DR PO SCH (09:00)
--- NOTE | 2019-09-27 09:23 | NUR ---
WOUND CARE CONSULT: PT PRESENTS WITH INTACT SKIN AND IS AMBULATORY AND CONTINENT. PT STATES HAS BIRTHMARK ON HER BACK (DISCOLORATION PRESENT ON ADMISSION). WILL SEE PRN. CURRENT UDAY SCORE IS 21.
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
--- NOTE | 2019-09-27 10:34 | NUR ---
FAMILY CONTACT: ELLE contacted pts sister in law Arlyn [phone] to discuss pts current psych hospitalization, treatment, and discharge plan. ELLE informed her that [facility] Address: [address] [place] [address] is not taking pt back due to her aggressive behavior towards self, other residents, and staff. ELLE informed Arlyn that pt will be referred to a SNF and Arlyn agreed.
--- NOTE | 2019-09-27 11:16 | NUR ---
INITIAL DISCHARGE PLAN: Pt will need SNF placement. ELLE contacted Pasha, distribution center administrator at [facility] Address: [address] [place] [phone] who stated that the facility is unable to accommodate pts needs due to her aggressive behavior and are unable to accept pt back. Pt will need SNF placement. ELLE contacted pts sister in law Arlyn [phone] to inform and agreed with SNF placement. ELLE will help form a safe and proper discharge in collaboration with .
[2019-09-27 16:00] VITALS: BP 129/70
[2019-09-27] MEDS ORDERED: DIVALPROEX SODIUM 250 MG TABLET.DR PO SCH (17:00)
[2019-09-27] MEDS: DIVALPROEX SODIUM 250 MG TABLET.DR PO SCH (18:10)
[2019-09-27] MEDS: QUETIAPINE FUMARATE 25 MG TABLET PO SCH ×2 (18:10→21:32)
--- NOTE | 2019-09-27 19:12 | NUR ---
GPS RN NOTES RECEIVED PT IN BED AWAKE, NO S/S OR COMPLAINTS OF PAIN AT THIS TIME. RESPIRATIONS EVEN AND UNLABORED WITH NO S/S OF ACUTE DISTRESS OR SOB NOTED. PT A/O X1. PT DENIES SI/HI AT THIS TIME. SAFETY MEASURES IN PLACE WITH BED IN LOWEST LOCKED POSITION WITH SIDE RAILS UP X2. CALL HALL WITHIN REACH. WILL CONTINUE TO MONITOR.
[2019-09-27 20:45] VITALS: BP 125/83
[2019-09-27] MEDS: ATORVASTATIN 10 MG TABLET PO SCH (21:31)
[2019-09-27] MEDS: TEMAZEPAM 7.5 MG CAPSULE PO PRN (22:03)
[2019-09-27 22:54] VITALS: BP 125/83
[2019-09-28] MEDS: LORAZEPAM 0.5 MG TABLET PO PRN ×3 (01:18→14:38)
--- NOTE | 2019-09-28 07:06 | NUR ---
GPS RN NOTES PT IN BED AWAKE, NO S/S OR COMPLAINTS OF PAIN AT THIS TIME. RESPIRATIONS EVEN AND UNLABORED WITH NO S/S OF ACUTE DISTRESS OR SOB NOTED. PT A/O X1. PT DENIES SI/HI AT THIS TIME. SAFETY MEASURES IN PLACE WITH BED IN LOWEST LOCKED POSITION WITH SIDE RAILS UP X2. CALL HALL WITHIN REACH. WILL ENDORSE TO ONCOMING NURSE FOR LUCILLE.
[2019-09-28 08:00] VITALS: BP 115/55
[2019-09-28] MEDS: DIVALPROEX SODIUM 250 MG TABLET.DR PO SCH ×2 (08:27→17:26)
[2019-09-28] MEDS: QUETIAPINE FUMARATE 25 MG TABLET PO SCH ×3 (08:28→21:05)
--- NOTE | 2019-09-28 09:25 | NUR ---
WANDERS IN TO OTHER PT. RM.TOUCHING PT.
--- NOTE | 2019-09-28 09:30 | NUR ---
MEDICATED WITH MAALOX FOR STOMACH ACHE AND ATIVAN FOR AGITATION.
--- NOTE | 2019-09-28 13:03 | NUR ---
WALKING IN STOUT THEN SUDDENLY AGITATED,ENCOURAGED TO BE IN DINING RM.WITH SUPERVISION.
--- NOTE | 2019-09-28 14:38 | NUR ---
WANDERING IN TO OTHER PT. ROOMS-OTHER PT'S YELLING.MEDICATED WITH ATIVAN PO AND WALKED TO DINING RM.
[2019-09-28 16:00] VITALS: BP 111/74
[2019-09-28 20:17] VITALS: BP 120/78
[2019-09-28] MEDS: ATORVASTATIN 10 MG TABLET PO SCH (21:05)
[2019-09-28] MEDS: TEMAZEPAM 7.5 MG CAPSULE PO PRN (22:00)
--- NOTE | 2019-09-28 22:33 | NUR ---
PT UNABLE TO GO TO SLEEP OFFERED RESTORIL 7.5 MG PO PRN ORDERED. PT AGREED. ADMINISTERED MEDICATION. PT TOLERATED WELL CONTINUE TO MONITOR.
[2019-09-29 08:00] VITALS: BP 130/68
[2019-09-29] MEDS: QUETIAPINE FUMARATE 25 MG TABLET PO SCH ×3 (08:35→21:15)
[2019-09-29] MEDS: DIVALPROEX SODIUM 250 MG TABLET.DR PO SCH ×2 (08:36→17:08)
[2019-09-29 16:00] VITALS: BP 118/70
[2019-09-29 20:40] VITALS: BP 129/82
[2019-09-29] MEDS: ATORVASTATIN 10 MG TABLET PO SCH (21:15)
[2019-09-30 08:00] VITALS: BP 123/83
[2019-09-30] MEDS: DIVALPROEX SODIUM 250 MG TABLET.DR PO SCH ×2 (08:57→16:19)
[2019-09-30] MEDS: QUETIAPINE FUMARATE 25 MG TABLET PO SCH ×2 (08:58→16:19)
--- NOTE | 2019-09-30 14:24 | NUR ---
SNF REFERRAL: ELLE faxed SNF referral to Malu learning center coordinator at [facility] Address: [address] [facility], [place] [address] for review.
[2019-09-30 16:03] VITALS: BP 127/73
--- NOTE | 2019-09-30 16:05 | NUR ---
GROUP NOTE: SW encouraged pt to attend group on this present day discussing "discharge planning." Pt unable to attend group due to Dementia and cognitive impairment. Pt is confused and disorganized with confabulated thought process.
--- NOTE | 2019-09-30 16:07 | NUR ---
SNF: SW received a call from Malu, hospital admissions clerk at [facility] Address: [address] [facility], [place] [address] stating pt has been admitted to the facility.
--- NOTE | 2019-09-30 19:57 | NUR ---
PT WAS RECEIVED FR THE MORNING SHIFT LYING IN THE BED, AWAKE AND QUIET, NO S/S AND C/O PAIN AND DISCOMFORT, CONTINUE TO MONITOR PT THROUGHOUT THE SHIFT.
[2019-09-30 20:19] VITALS: BP 127/70
[2019-09-30] MEDS: ATORVASTATIN 10 MG TABLET PO SCH (21:42)
[2019-09-30] MEDS: QUETIAPINE FUMARATE 100 MG TABLET PO SCH (21:42)
[2019-09-30] MEDS: TEMAZEPAM 7.5 MG CAPSULE PO PRN (21:43)
[2019-10-01 08:00] VITALS: BP 148/72
[2019-10-01] MEDS: DIVALPROEX SODIUM 250 MG TABLET.DR PO SCH ×2 (08:23→16:10)
[2019-10-01] MEDS: QUETIAPINE FUMARATE 25 MG TABLET PO SCH ×2 (08:23→16:10)
[2019-10-01 16:00] VITALS: BP 141/85
[2019-10-01 20:30] VITALS: BP 128/76
[2019-10-01] MEDS: TEMAZEPAM 7.5 MG CAPSULE PO PRN (22:11)
[2019-10-01] MEDS: QUETIAPINE FUMARATE 100 MG TABLET PO SCH (22:11)
[2019-10-01] MEDS: ATORVASTATIN 10 MG TABLET PO SCH (22:13)
[2019-10-02 08:00] VITALS: BP 117/73
[2019-10-02] MEDS: DIVALPROEX SODIUM 250 MG TABLET.DR PO SCH ×2 (08:21→16:42)
[2019-10-02] MEDS: QUETIAPINE FUMARATE 25 MG TABLET PO SCH ×2 (08:21→16:42)
[2019-10-02 16:00] VITALS: BP 122/73
--- NOTE | 2019-10-02 19:45 | NUR ---
GPS RN NOTES RECEIVED IN THE ROOM,WALKING AROUND WITH STEADY GAIT,A/O X 1-2, CONFUSED,DISORIENTED,HYPERVERBAL,NEEDS FREQUENT REDIRECTION.MED COMPLIANT BUT NEEDS TO STAY WITH HER WHILE TAKING MEDICATIONS.WILL CONTINUE TO MONITOR BEHAVIOR.
[2019-10-02 20:00] VITALS: BP 154/72
[2019-10-02 20:25] VITALS: BP 154/72
[2019-10-02] MEDS: ATORVASTATIN 10 MG TABLET PO SCH (21:19)
[2019-10-02] MEDS: QUETIAPINE FUMARATE 100 MG TABLET PO SCH (21:19)
--- NOTE | 2019-10-02 21:30 | NUR ---
GPS RN NOTES MED COMPLIANT.FOLLOW DIRECTIONS
[2019-10-02] MEDS: TEMAZEPAM 7.5 MG CAPSULE PO PRN (22:03)
[2019-10-03 08:00] VITALS: BP 142/75
[2019-10-03] MEDS: QUETIAPINE FUMARATE 25 MG TABLET PO SCH ×2 (08:41→16:42)
[2019-10-03] MEDS: DIVALPROEX SODIUM 250 MG TABLET.DR PO SCH ×2 (08:42→16:42)
[2019-10-03 16:00] VITALS: BP 138/79
[2019-10-03 20:47] VITALS: BP 132/79
[2019-10-03] MEDS: QUETIAPINE FUMARATE 100 MG TABLET PO SCH (21:30)
[2019-10-03] MEDS: ATORVASTATIN 10 MG TABLET PO SCH (21:30)
--- NOTE | 2019-10-04 07:30 | NUR ---
INITIAL RECEIVED IN THE ROOM,WALKING AROUND WITH STEADY GAIT,A/O X 1-2. PT EATING BREAKFAST CALM WILL CONTINUE TO MONITOR BEHAVIOR.
[2019-10-04 08:00] VITALS: BP 136/76
[2019-10-04] MEDS: QUETIAPINE FUMARATE 25 MG TABLET PO SCH (08:51)
[2019-10-04] MEDS: DIVALPROEX SODIUM 250 MG TABLET.DR PO SCH (08:51)
--- NOTE | 2019-10-04 12:08 | NUR ---
DISCHARGE NOTE: Pt will be discharged at 12:30pm via [facility] to [facility] () [address] [facility] [id number] . Pts sister in law Arlyn [phone] has been notified and agrees with discharge plan. Pts mood is euthymic with congruent affect. Pt denied visual/auditory hallucinations and denied suicidal/homicidal ideation. Pt will be under the care of Psychiatrist: Dr. Valdes Address: [address] [place] [address] and Mangle Tender Cloth: Dr. Tam Griffin Address: [address] [address] . The multidisciplinary exitcare form was done, printed, signed, and given to the patient.
--- NOTE | 2019-10-04 15:44 | NUR ---
DISCHARGE PT DISCHARGED TO [facility] LEFT WITH [facility]. PY DENIES SI OR HI IDEATIONS.
== END 2019-10-04 15:45 | DRG 885 ==
LOC: ER 15:52 → GPS 19:34
PROVIDERS: ADMIT Psychiatry & Neurology Psychiatry; ATTEND Registered Nurse
DX: F25.9 Schizoaffective disorder, unspecified (principal); F23 Brief psychotic disorder; I10 Essential (primary) hypertension; E78.5 Hyperlipidemia, unspecified; Z66 Do not resuscitate; R45.1 Restlessness and agitation
CPT/HCPCS: 36415; 80048-TC; 80053-TC; 80061-TC; 80076-TC; 80305; 81000-TC; 82962-TC; 85025-TC; 87081-TC; G0480

== ENCOUNTER 2020-01-25 03:10 | Inpatient (IN) | payer MEDICARE, OTHER ==
[~2020-01-25] VITALS: Ht 167.6 cm; Wt 65.3 kg
[~2020-01-25 03:10] MED LIST changes: -ACET-73 PO; -AMLO10TA4 PO; -CEPH-570 PO; -FOLI1TAB16 PO; -LORA-259 PO; -MAG355OR18 PO
[2020-01-25 03:30] VITALS: BP 139/75
--- NOTE | 2020-01-25 03:30 | NUR ---
GPS ADMISSION NOTE: ADMITTED THIS 74-Y/O, FEMALE, FROM [facility], INITIALLY PT CAME FROM [facility]. ADMITTED ON 5150 HOLD FOR GD. PER HOLD PT. IS AGGRESSIVE, AGITATED AND NON-COMPLIANT. PT IS NOT ABLE TO PROVIDE FOR HER FOOD MCFP OR CLOTHING. UPON FACE TO FACE ASSESSMENT, PATIENT IS ALERT AND ORIENTED TO SELF ONLY. PT. IS CONFUSED, DISORGANIZED, COOPERATIVE WITH CARE. IN NO APPARENT DISTRESS NOTED. SKIN ASSESSMENT DONE, GENERALIZED BODY RASH NOTED. WOUND CONSULT ORDERED. PATIENT UNABLE TO SIGN ADMISSION CONSENTS D/T CONFUSION. PT'S RIGHTS HANDBOOK & PT. GUIDELINES BOOK GIVEN & DISCUSSED TO THE PATIENT. PT BELONGINGS WERE INVENTORIED & CHECKED FOR CONTRABAND. PT. IS UNDER THE PSYCHIATRIC CARE OF DR. MARI ORDERS OBTAINED & UNDER THE MEDICAL CARE OF DR. PONCE. PATIENT EDUCATED TO THE USE OF CALL HALL. BED ALARM ON. ENVIRONMENTAL SAFETY CHECK DONE. BED LOCKED & IN LOW POSITION. WILL CONTINUE TO MONITOR Q15 MINUTES FOR SAFETY & BEHAVIOR.
[2020-01-25] MEDS ORDERED: MAGNESIUM HYDROXIDE 30 ML UDC PO PRN (04:30)
[2020-01-25] MEDS ORDERED: MAG HYDROX/AL HYDROX/SIMETH 30 ML UDC PO PRN (04:30)
[2020-01-25] MEDS ORDERED: ACETAMINOPHEN 325 MG TABLET PO PRN (04:30)
[2020-01-25] MEDS ORDERED: SULF1TAB48 PO (04:34)
[2020-01-25] MEDS ORDERED: LEVO25TA7 PO (04:35)
[2020-01-25] MEDS ORDERED: HYDR28.3 TP (04:39)
[2020-01-25] MEDS ORDERED: OLAN5TAB6 PO (04:41)
[2020-01-25] MEDS ORDERED: BLOOD SUGAR DIAGNOSTIC 1 EACH STRIP IN ONE (06:00)
[2020-01-25 08:00] VITALS: BP 107/55
--- NOTE | 2020-01-25 09:00 | NUR ---
RN NOTE- PT IN BED SLEEPING. AWAKENS EASILY, CONFUSED. DISORIENTED. REORIENTATION AND REDIRECTION REQUIRED. MONITOT FOR BEHAVIORAL ISSUES, SKIN RASH TO BE ADDRESSED BY MD AT VISIT. ENCOURAGE AND PROVIDE CASLM ENVIRONMENT
[2020-01-25] MEDS: DIVALPROEX SODIUM 250 MG TABLET.DR PO SCH ×2 (12:20→17:22)
--- NOTE | 2020-01-25 13:30 | NUR ---
RN NOTE- AGITATION, COMBATIVENESS. ATIVAN 0.5 MG GIVEN AT THIS TIME.
[2020-01-25] MEDS: LORAZEPAM 0.5 MG TABLET PO PRN (14:01)
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
[2020-01-25] MEDS ORDERED: OLANZAPINE 10 MG VIAL IM ONE (14:30)
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
--- NOTE | 2020-01-25 15:36 | NUR ---
RN NOTE- AGITATION/ PT CALMER. RX EFFECTIVE
[2020-01-25 16:00] VITALS: BP 102/65
[2020-01-25] MEDS: HYDROCORTISONE 0.5% CREAM 28.35 GM TUBE TP PRN (18:32)
--- NOTE | 2020-01-25 18:32 | NUR ---
RN NOTE- SKIN TX COMPLETED W HYDROCORTISONE CREME TO BACK AND ARMS
--- NOTE | 2020-01-25 20:48 | NUR ---
GPS RN NOTE RECEIVED PT IN DAY-ROOM A/O X1, VERY CONFUSED, DISORIENTED, DISORGANIZED, TALKING TO SELF, UNABLE TO FOLLOW DIRECTIONS. PT HAD A LARGE AND PASTY BOWEL MOVEMENT AT ABOUT 0800. PT HAS REDNESS ALL OVER HER BODY AND ITCHY. PT CLEANED, BARRIER CREAM APPLIED TO SACRAL AND PERINEAL AREAS AND HYDROCORTISONE CREAM APPLIED TO PT SKIN. PT CURRENTLY LAYING IN BED BEING WATCHED BY NURSE. NO S/S OF ACUTE DISTRESS NOTED. RESPIRATION EVEN AND UNLABORED WITH EQUAL RISE AND FALL OF CHEST. PT IN ROOM AIR. SAFETY PRECAUTION CONTINUED, BED IN LOW LOCKED POSITION, CALL LIGHT WITHIN REACH. FLUID AND SNACK GIVEN TOLERATED. ALL PT NEEDS MET AT THIS TIME. WILL CONTINUE TO Q15 MINS MONITOR FOR SAFETY, MOOD AND BEHAVIOR.
[2020-01-25] MEDS: OLANZAPINE 5 MG TABLET PO SCH (22:15)
[2020-01-25 22:35] VITALS: BP 118/87
[2020-01-25] MEDS: TEMAZEPAM 7.5 MG CAPSULE PO PRN (22:45)
--- NOTE | 2020-01-25 22:46 | NUR ---
GPS RN NOTE PT RESTLESS, CONFUSED, DISORIENTED, UNABLE TO SLEEP. RESTORIL 7.5MG 1 TAB GIVEN PO. WILL CONTINUE TO MONITOR AND ASSESS.
[2020-01-26] MEDS: LORAZEPAM 0.5 MG TABLET PO PRN ×3 (00:53→21:26)
--- NOTE | 2020-01-26 00:57 | NUR ---
GPS RN NOTE PT WOKE UP AT ABOUT 0045 CONFUSED, DISORIENTED, DISORGANIZED AND AGITATED. TRYING TO GET OUT OF BED, TRYING TO HIT STAFF, REFUSING REDIRECTION. ATIVAN 0.5MG 1 TAB GIVEN PO FOR AGITATION. WILL CONTINUE TO MONITOR.
[2020-01-26] MEDS: HYDROCORTISONE 0.5% CREAM 28.35 GM TUBE TP PRN (01:12)
--- NOTE | 2020-01-26 01:20 | NUR ---
GPS RN NOTE PT HAS GENERALIZED BODY RASH/REDNESS. AT ABOUT 0105 PT BECAME RESTLESS, ITCHY AND SCRATCHING ALL PARTS OF HER BODY. HYDROCORTISONE CREAM APPLIED TO AFFECTED AREAS TO HELP RELIEF ITCHINESS. WILL CONTINUE TO MONITOR
[2020-01-26] MEDS ORDERED: OLANZAPINE 10 MG VIAL IM STA (05:15)
--- NOTE | 2020-01-26 05:25 | NUR ---
GPS RN NOTE, PATIENT IN BED, CONFUSED, INCOHERENT, DELUSIONAL, AGITATED, AGGRESSIVE, YELLING, AND STRIKING OUT AT STAFF. LESS RESTRICTIVE MEASURES ATTEMPTED IE DIVERSION, OFFERING PRN MEDICATION, 1 TO 1 INTERACTION, AND REORIENTATION WAS TRIED WITH NO POSITIVE EFFECT. PAGED DR MARI AND INFORMED HIM OF MY FINDINGS. DR MARI ORDERED ZYPREXA 5MG IM ONCE. PATIENT GIVEN AFOREMENTIONED MEDICATION IN HER RIGHT VENTROGLUTEAL WITH THE HELP OF STAFF AND SECURITY. PATIENT TOLERATE PROCEDURE WELL. PATIENT ASSISTED TO GRIS CHAIR FOR OBSERVATION WITH THE HELP OF STAFF AND SECURITY. ALL ORDERS NOTED AND CARRIED OUT WILL CONTINUE TO MONITOR THE PATIENT.
[2020-01-26 06:28] LABS: BASOPHILS % (AUTO) 0.3 % (0.0-2.0); EOSINOPHILS % (AUTO) 3.5 % (0.0-6.0); HEMATOCRIT 39 % (33-45); LYMPHOCYTES # (AUTO) 1.9 /CMM (0.8-4.8); LYMPHOCYTES % (AUTO) 33.5 % (20.0-44.0); MEAN CORPUSCULAR HGB CONC 33 g/dl (31.0-36.0); MEAN CORPUSCULAR VOLUME 97 fL (82-100); MONOCYTES # (AUTO) 0.6 /CMM (0.1-1.30); MONOCYTES % (AUTO) 10.8 % (2.0-12.0); NEUTROPHILS # (AUTO) 2.9 /CMM (1.8-8.9); NEUTROPHILS % (AUTO) 51.9 % (43.0-81.0); PLATELET COUNT (AUTO) 153 /CMM (150-450); RED BLOOD CELL COUNT(AUTO) 4.03 MIL/uL (4.0-5.2); WHITE BLOOD COUNT (AUTO) 5.5 K/uL (4.3-11.0)
[2020-01-26 06:43] LABS: ALBUMIN 3.5 g/dL (3.4-5.0); BILIRUBIN,TOTAL 0.4 mg/dL (0.2-1.0); CALCIUM, SERUM 8.8 mg/dL (8.5-10.1); POTASSIUM 3.7 mmol/L (3.5-5.1); TOTAL PROTEIN, SERUM 7.2 g/dL (6.4-8.2)
[2020-01-26 06:49] LABS: THYROID STIMULATING HORMONE 5.4 uIU/mL (0.358-3.74)
[2020-01-26] MEDS: LEVOTHYROXINE SODIUM 25 MCG TABLET PO SCH (07:42)
[2020-01-26] MEDS: DIVALPROEX SODIUM 250 MG TABLET.DR PO SCH ×3 (08:14→16:58)
--- NOTE | 2020-01-26 09:00 | NUR ---
RN NOTE- PT OOB IN GRIS CHAIR. COMBATIVE AT SHIFT START W NOC SHIFT. NOC SHIFT GAVE ZYPREXA IM. PT STILL IRRITABLE AT TIMES. TRYING TO GET OUT OF CHAIR. PO INTAKE GOOD. MED COMPLIANT. CONFUSED. ORIENTED TO PERSON ONLY. CONTINUE TO PROVIDE SAFE THERAPEUTIC ENVIRONMENT.
--- NOTE | 2020-01-26 10:02 | NUR ---
RN NOTE- PT AGITATED. ATTEMPTING TO GET OUT OF CHAIR. OPPOSITIONAL TO CARE AND REDIRECTION. ATIVAN 0.5 MG GIVEN
[2020-01-26] MEDS: OLANZAPINE 5 MG TABLET PO SCH (21:26)
--- NOTE | 2020-01-26 21:30 | NUR ---
Pt agitated and restless. Least restrictive measures ineffective. Ativan 0.5 mg po prn given as ordered. Will continue to monitor.
--- NOTE | 2020-01-26 22:34 | NUR ---
Post 1 hr Ativan effective. Pt is calm. Will continue to monitor.
[2020-01-26 22:38] VITALS: BP 117/77
[2020-01-27] MEDS: TEMAZEPAM 7.5 MG CAPSULE PO PRN ×2 (00:01→21:38)
--- NOTE | 2020-01-27 00:03 | NUR ---
GPS RN NOTES: INSOMNIA PT UNABLE TO SLEEP. OFFERED RESTORIL 7.5.H PO PRN ORDERED. PT AGREED AND TOLERATED MEDICATION WELL. CONTINUE TO MONITOR.
[2020-01-27] MEDS: LORAZEPAM 0.5 MG TABLET PO PRN (05:34)
--- NOTE | 2020-01-27 05:36 | NUR ---
GPS RN NOTED: ANXIOUS PT ANXIOUS AND SPEAKING VERY LOUDLY. PT ANXIOUS. OFFER ATIVAN 0.5MG PO PRN ORDERED. PT AGREED AND TOLERATED MEDICATION WELL. CONTINUE TO MONITOR.
--- NOTE | 2020-01-27 06:40 | NUR ---
GPS RN NOTES: PLACED PT IN GRIS CHAIR DUE TO PT YELLING AND SCREAMING IN ROOM. PT BECAME AGITATED WHILE CHANGING HER GOWN AND LINEN. PT TRY TO GET OUT OF BED, SCREAMING IN TURKISH, AND KICKING STAFF. PLACED PT IN GRIS CHAIR. PT IS CURRENTLY NEAR HER ROOM IN THE HALLWAY. STAFF CLOSE BY MONITORING HER. PT IS CALL AT THIS TIME AND QUIET. WILL CONTINUE TO MONITOR.
[2020-01-27] MEDS: LEVOTHYROXINE SODIUM 25 MCG TABLET PO SCH (08:21)
[2020-01-27] MEDS: DIVALPROEX SODIUM 250 MG TABLET.DR PO SCH ×3 (08:30→17:16)
--- NOTE | 2020-01-27 08:42 | NUR ---
WOUND CARE CONSULT: LIMITED ASSESSMENT TODAY DUE TO PT BECOMES AGITATED AND COMBATIVE. RED AREAS NOTED TO CHEST AND BACK, PRESENT ON ADMISSION. RN TO DISCUSS WITH MD TODAY. DISCUSSED SKIN PROTECTION WITH NURSING STAFF. WILL SEE PRN. IN AGREEMENT WITH PLAN OF CARE.
[2020-01-27] MEDS ORDERED: Z GUARD REMEDY 2 OZ OINT TP PRN (09:00)
--- NOTE | 2020-01-27 09:29 | NUR ---
FACILITY CONTACT: ELLE contacted [facility] Address: [address] [place] [address] and spoke with Minna, commercial property administrator who stated pt was recently discharged from [facility] on 01/24/20 and was sent back that same day due to pts aggressive and combative behavior and refusing to take medication. She states pt has been living at their facility since 01/09/2017 and currently is unsure if pt will be accepted back due to her unmanageable behavior. ELLE informed her that pt does not have SNF days and therefore is unable to place pt elsewhere. Minna stated that pts case will be discussed on this day and she will call ELLE back to inform her if they will be able to take her back.
--- NOTE | 2020-01-27 09:38 | NUR ---
FAMILY CONTACT: ELLE contacted pts sister in law Arlyn [phone] to discuss pts current psych hospitalization, treatment, and discharge plan. ELLE informed her that [facility] Address: [address] [place] [id number] is unsure if they will be taking pt back due to her aggressive behavior towards self, other residents, and staff. ELLE stated that pt has zero SNF days and ELLE is unable to place pt elsewhere. Arlyn understands and hopes [facility] will accept pt back as she states pt has lived there since 2017.
[2020-01-27] MEDS: Z GUARD REMEDY 2 OZ OINT TP SCH (09:40)
[2020-01-27 10:47] VITALS: BP 140/83
--- NOTE | 2020-01-27 10:58 | NUR ---
INITIAL DISCHARGE PLAN: Pt may need SNF placement. ELLE spoke with Minna, network engineer administrator at [facility] Address: [address] [place] [id number] who stated that the facility is unsure if they will be accepting pt back due to her aggressive behavior. ELLE contacted pts sister in law Arlyn [phone] to inform her and she states she wishes for pt to be discharged back to [facility]. ELLE will help form a safe and proper discharge in collaboration with .
--- NOTE | 2020-01-27 13:27 | NUR ---
FACILITY CONTACT: ELLE received a call from Minna, public health administrator [facility] Address: [address] [place] [phone] who states pt will be accepted back and once pt is stable for discharge she is requesting a 602 form be completed along with a signed medication list. ELLE will contact Minna via her cell phone [phone] once pt is stable for discharge.
--- NOTE | 2020-01-27 15:45 | NUR ---
INDIVIDUAL NOTE: In lieu of group therapy due to COVID 19, SW met with the pt at bedside. Pt is not appropriate for group at this time as pt has Dementia and is not alert to self, place, time, and situation.
[2020-01-27 16:34] VITALS: BP 136/80
[2020-01-27] MEDS: OLANZAPINE 5 MG TABLET PO SCH (21:38)
--- NOTE | 2020-01-28 05:54 | NUR ---
ENDING NOTES; RECEIVED IN THE GERICHAIR NEAR NURSING STATION. ALERT TO SELF. COMBATIVE WHEN NEED TO CHANGE HER DIAPER. 3 NURSE TO DO THE JOB. SHE SWINGS HER ARMS CLOSED FISTS AT THE NURSES, AND YELLING LOUDLY. WENT TO BED 23;30 DRESSED IN HOSPITAL GOWN FALLING ASLEEP FAST.. MEDICATION EFFECTIVE
[2020-01-28] MEDS: DIVALPROEX SODIUM 250 MG TABLET.DR PO SCH ×3 (09:00→17:52)
[2020-01-28] MEDS: Z GUARD REMEDY 2 OZ OINT TP SCH (09:00)
[2020-01-28 09:41] VITALS: BP 129/78
[2020-01-28] MEDS: LEVOTHYROXINE SODIUM 25 MCG TABLET PO SCH (12:09)
[2020-01-28] MEDS: LORAZEPAM 0.5 MG TABLET PO PRN (13:18)
--- NOTE | 2020-01-28 13:31 | NUR ---
GIVEN ATIVAN FOR AGITATION.
--- NOTE | 2020-01-28 13:51 | NUR ---
Individual Note: In lieu of group therapy due to COVID 19, SW met with the pt in the hallway as she was in a gerichair. Pt was mumbling and was nonsensical. Pt is not appropriate for individual therapy at this time as pt has Dementia and is not alert to self, place, time, and situation.
[2020-01-28 16:03] VITALS: BP 106/65
[2020-01-28 20:00] VITALS: BP 124/76
[2020-01-28] MEDS: OLANZAPINE 5 MG TABLET PO SCH (21:35)
[2020-01-28] MEDS: TEMAZEPAM 7.5 MG CAPSULE PO PRN (22:00)
--- NOTE | 2020-01-28 22:00 | NUR ---
GPS-RN NOTE: INSOMNIA PATIENT C/O INABILITY TO SLEEP. ADMINISTERED RESTORIL 7.5MG PO ORDERED. WILL CONTINUE TO MONITOR.
[2020-01-29] MEDS: LORAZEPAM 0.5 MG TABLET PO PRN (00:05)
--- NOTE | 2020-01-29 00:05 | NUR ---
GPS-RN NOTE: ANXIETY PATIENT IS ANXIOUS AND RESTLESS. ADMINISTERED ATIVAN 0.5MG PO ORDERED. WILL CONTINUE TO MONITOR FOR PT'S SAFETY.
--- NOTE | 2020-01-29 00:05 | NUR ---
GPS-RN NOTE: SKIN TEAR ON RIGHT ELBOW WHILE CHANGING THE PATIENT IN BED, NOTED TO HAVE AN OLD BRUISE IN BLACKISH-DISCOLORATION AND WITH SKIN TEAR ON RIGHT ELBOW MEASURING 1.0X0.5CM. NOTED WITH SMALL AMOUNT OF BLOOD AROUND THE AFFECTED AREA. INITIAL TREATMENT RENDERED. WOUND CONSULT ORDERED. PATIENT NOTED SCRATCHING HER RIGHT ELBOW. DISCOURAGED PATIENT NOT TO SCRATCH. PATIENT UNABLE TO VERBALIZE UNDERSTANDING DUE TO CONFUSION. NO MANIFESTATION OF PAIN OR DISCOMFORT NOTED. SAFETY PRECAUTIONS IMPLEMENTED AT ALL TIMES. WILL CONTINUE TO MONITOR Q15MIN ROUNDS FOR SAFETY AND BEHAVIOR. ADVERTISING INTERN MADE AWARE. WILL NOTIFY THE FAMILY IN AM.
[2020-01-29] MEDS: HYDROCORTISONE 0.5% CREAM 28.35 GM TUBE TP PRN ×2 (00:10→11:28)
[2020-01-29] MEDS: LEVOTHYROXINE SODIUM 25 MCG TABLET PO SCH (07:29)
[2020-01-29 08:00] VITALS: BP 121/76
[2020-01-29] MEDS: DIVALPROEX SODIUM 250 MG TABLET.DR PO SCH ×2 (08:51→13:19)
--- NOTE | 2020-01-29 09:00 | NUR ---
RN NOTE- PT CALM THIS MORNING, MED COMPLIANT, PO INTAKE GOOD, NO BEHAVIORAL ISSUES. ALERT ORIENTED TO PERSON ONLY
[2020-01-29] MEDS: Z GUARD REMEDY 2 OZ OINT TP SCH (09:10)
--- NOTE | 2020-01-29 10:19 | NUR ---
SNF Referral: SW faxed a referral to the following facilities: [facility] with attn to Eyad: [phone] [facility] with attn to Shantel: [phone].
--- NOTE | 2020-01-29 10:30 | NUR ---
RN NOTE- PT ALERT ORIENTED . PT WITHOUT SUICIDAL OR HOMICIDAL IDEATION. CURRENT VS- B/P- 121/76, HEART RATE- 82/M, RESP RATE- 18/M, TEMP- AFEBRILE AT 97.9 AND OXYGEN SATURATION 97% ON ROOM AIR. CURRENTLY PRESENTS WITHOUT COUGH, UPPER RESPIRATORY SYMPTOMS. NEGATIVE RHINITIS OR RHINORRHEA. Addendum: 01/29/20 at 1056 by ADRIANA PUENTES RN RN NOTE- PT DOES NOT MEET CRITERIA FOR COVID 19 TESTING.
--- NOTE | 2020-01-29 10:35 | NUR ---
SNF Contact: Shantel ([phone]) admissions rn from [facility] contacted the SW and stated that the pt was accepted to their facility. She asked the SW to fax over a clearance and the SW did to the fax number: [phone].
--- NOTE | 2020-01-29 10:47 | NUR ---
Facility Contact: ELLE Buitrago, health care facility administrator [facility] Address: [address] [place] [address] and informed her that the pt will be discharged to [facility]. She stated that she approves this discharge plan and will follow up with the facility so that she can return once she is more stable.
--- NOTE | 2020-01-29 11:56 | NUR ---
Family Contact: ELLE contacted pts sister in law Arlyn [phone] and left a voicemail to inform her of the discharge plan.
--- NOTE | 2020-01-29 12:07 | NUR ---
GPS/RN-NOTES RECEIVED T.O DISCHARGE ORDER FROM DR. RENTERIA COVERING FOR DR. MARI TO DISCONTINUE HOLD AND CONTINUE ALL MEDICATIONS. NOTED AND CARRIED OUT.
--- NOTE | 2020-01-29 14:23 | NUR ---
Discharge Note: Pt was discharged to [facility] ([facility]) located at [address] [place] [address]; ([phone]). Pt will be in 3A. Pt was transported via [facility] (Trip #[id number]) at 2:45PM. Pts sister in law, Arlyn ([phone]), was informed via voicemail. Upon discharge, the pt appeared to be in a euthymic mood and presented with a calm affect. Pt appeared to be disorganized and confused. Pt appeared to be well groomed and ambulatory. Pt denied both suicidal and homicidal ideation as well as auditory and visual hallucinations. Pt will be under the care of her psychiatrist, Dr. Nubia Boss, located at [address] [address]; and parts product analyst, Dr. Odom, located at [address] [place] [address]; .
--- NOTE | 2020-01-29 16:00 | NUR ---
RN D/C NOTE- PT DISCHARGED AT THIS TIME TO [facility]. REPORT CALLED TO RN AT FACILITY. PT DC ON [facility] VIA AMBULANCE. DC INSTRUCTIONS REVIEWED W AMBULANCE STAFF AND VERBALIZED UNDERSTANDING. SKIN CHECK COMPLETED, PHOTOS TAKEN AND PLACED IN CHART., PT ALERT, CONFUSED AND ORIENTED TO SELF. CLOTHING RETURNED TO PT. ID WRISTBAND REMOVED. ESCORTED OFF UNIT BY STAFF. V/S 121/76, HR- 90, RR- 18, TEMP- 98.0 SATURATION 96% RA.
== END 2020-01-29 16:00 | DRG 885 ==
LOC: GPS 03:10
PROVIDERS: ADMIT Psychiatry & Neurology Psychiatry; ATTEND Internal Medicine
DX: F25.0 Schizoaffective disorder, bipolar type (principal); F01.50 Vascular dementia, unspecified severity, without behavioral disturbance, psychotic disturbance, mood disturbance, and anxiety; F23 Brief psychotic disorder; F03.90 Unspecified dementia, unspecified severity, without behavioral disturbance, psychotic disturbance, mood disturbance, and anxiety; E78.5 Hyperlipidemia, unspecified; F41.9 Anxiety disorder, unspecified; M62.81 Muscle weakness (generalized); E03.9 Hypothyroidism, unspecified; F32.9 Major depressive disorder, single episode, unspecified
CPT/HCPCS: 36415; 80053-TC; 80061-TC; 82962-TC; 84443-TC; 85025-TC; 87081-TC; J3490